=== PATIENT | male | born 1940 | race Caucasian/White ===

== ENCOUNTER → 2017-03-16 | Outpatient (CLI) | payer OTHER, MEDICARE ==
[~2017-03-16] MED LIST: AMBIEN 5 MG TABL5 M1 PO; AMBIEN 5 MG TABL5 MG PO; ASPIR 8181 MG PO; ASPIRIN325 PO; ATORVASTATIN CA40 MG PO; BENADRYL25 MG PO; CALCIUM 600 +1 EAC1 PO; CALCIUM PO; CHOLESTEROL MA1 EACH PO; DILAUDID 2 MG TA2 MG PO; DOXYCYCLINE 10100 MG PO; FISH OIL 1,001000 M2 PO; FISH OIL SOFTG1 EACH PO; GABAPENTIN 100100 MG PO; IMDUR 30 MG TAB30 M1 PO; LIPITOR40 MG PO; LISINOPRIL5 MG PO; LOPRESSOR 50 MG50 M1 PO; LORAZEPAM 1 MG T1 M1 PO; METAMUCIL PAC1 UDPKT PO; MIRALAX255 GM PO; NEURONTIN 300300 M1 PO; PERCOCET PO; PRILOSEC20 MG PO; RANEXA500 MG PO; RED YEAST RICE600 MG PO; SORINE 80 MG TA80 M1 PO; THALOMID50 MG PO; VITAMIN D1000 UNI1 PO; [UNRECOGNIZED DRUG - OTHER]
== END ==
LOC: RAD 12:00
DX: I50.22 Chronic systolic (congestive) heart failure (principal); R06.00 Dyspnea, unspecified

== ENCOUNTER 2018-01-16 19:32 | Inpatient (IN) | payer OTHER, MEDICARE ==
[~2018-01-16] VITALS: Ht 162.6 cm; Wt 67.1 kg
--- NOTE | ~2018-01-16 | HC ---
[facility] [place] [address] CONSULTATION Name: LUCIOAFUASILVIA Nguyễn Room #: 417-I ADM IN .R.#: [id number] Admission: 01/16/18 Attend Phys: Alex White DO Discharge: Date of : 39 Report #: [id number] THIS REPORT FOR: //name// CC: Alex White DATE OF SERVICE: 01/16/2018 HISTORY OF PRESENT ILLNESS: This is a 77-year-old male patient who was evaluated by me for the possibility of stroke. The patient indicated that he usually takes anticoagulant, Eliquis, for what looks like atrial fibrillation. The patient has a pacemaker and defibrillator. He had what looks like subconjunctival hemorrhage on the right side, so he stopped taking Eliquis by himself a few days ago. He thinks he probably did not take it for 3 days or so. This evening this patient had acute onset of what looks like right hemianopsia. Thinking it might be stroke he took a dose of Eliquis and started her again and then came to Emergency Room. In the Emergency Room, he was evaluated. His evaluation was limited because of multiple factors which will be summarized later on. REVIEW OF SYSTEMS: Positive for multiple myeloma. He has a pacemaker and defibrillator. He does not know whether pacemaker is MRI-compatible or not. He had MRI in the past. He thinks he had a stroke in the past. He had kidney stones. He had laminectomy. This was his relevant 14-point review of system. PAST MEDICAL HISTORY: Positive for stroke, further description was not very clear. FAMILY HISTORY: Negative for early age stroke. SOCIAL HISTORY: He has smoked in the past. He drinks alcohol rarely. PHYSICAL EXAMINATION: Indicate he is alert. He is responsive. He can tell me the month. He could not tell me the exact date. He thinks his memory and fund of knowledge is slightly poor. Cranial nerve examination 2-12 indicates dense hemianopsia on the right side and he also has some hemorrhage there. His left eye looks okay. This patient's strength, sensation, reflexes are symmetrical. His posiions sense is absent in both lower extremities but that is his baseline. His reflexes are absent in the lower extremitiesThere is no meningeal sign. There is no carotid bruit. He is moderately built individual. His blood pressure is 180/93. He got some mild hypertensive, but blood pressure did fall down and I asked them to give a little bolus of fluid. He had a history of heart failure in the past, so we need to be cautious with fluids also. There is no respiratory difficulty or rhonchi. He did have a CT scan of the head, which was mostly unremarkable. [address] [address] CONSULTATION Name: SILVIA MELENDEZ Room #: 417-I ADM IN .R.#: [id number] Admission: 01/16/18 Attend Phys: Alex White DO Discharge: Date of : 39 Report #: [id number] IMPRESSION: 1. Cerebrovascular accident. It is in the posterior cerebral artery distribution. It is most likely emboli from the heart because of stopping the Eliquis. 2. The possibility of this being something in the eye is there. I do not think any production posting clerk comes here. I will defer to admitting physician any evaluation in that regard. RECOMMENDATION: I had a long discussion with the patient. Emergency Room physician has already discussed the situation with him. I agree this patient is not a tPA candidate. He just took Eliquis and that will be a contraindication for TPA. His deficit is mild. He was still given the option and he does not want tPA. His evaluation is difficult. Ideally, it is good to evaluate this patient for any other abnormality, but his GFR is only 37 and his deficit is mild, so even if thrombus is fine ____ not a very good thrombectomy candidate. I did ask the Emergency Room physician to give him some bolus to keep his blood pressure around 160-170 systolic and not treat the blood pressure except with the medication he was taking at home. We should also give him fluids. His hemianopsia is dense and I am not sure whether it will reverse or not. I discussed all of this with the patient and I told him that he needs to discuss with the Ophthalmology before he drives, but he says he does not drive anyway. All of it was discussed with the patient in great detail and he understood it very well and more than 50 minutes of time was spent taking care of this patient today and majority of that time was spent counseling the patient. I will defer to you about any ophthalmological examination, which can be done to rule out any ophthalmology etiology, especially because he did have subconjunctival hemorrhage on the right eye, but I do not know whether an production posting clerk come here or not and I will defer that to the admitting doctor. Thank you very much. By: [id number] Migel Vaz MD /john
--- NOTE | ~2018-01-16 | EKG ---
[place] [address] [facility] [address] ELECTROCARDIOGRAM REPORT Name: SILVIA MELENDEZ Room #: 417-I ADM IN M.R.#: [id number] Admission: 01/16/18 Attend Phys: Alex White DO Discharge: Date of : 39 Report #: [id number] THIS REPORT FOR: //name// [facility] ED Test Date: 2018-01-16 Test Time: 19:50:38 Pat Name: SILVIA MELENDEZ Department: Room: [facility] Gender: M Stock Patcher: BABS : 1940 Requested By: Nicole Baig Order Number: [id number] MD: Bob Ray Measurements Intervals Emmett Rate: 63 P: MS: 208 QRS: 17 QRSD: 109 T: 53 QT: 445 QTc: 456 Interpretive Statements Atrial-paced rhythm Low voltage, extremity leads Consider inferior infarct Compared to ECG 06/20/2015 09:08:13 Poor R-wave progression no longer present Electronically Signed On 01-17-2018 17:42:24 CDT by Bob Ray [email or web address] <ELECTRONICALLY SIGNED> By: Bob Ray MD, [facility] 01/17/18 1742 1950 1950 Bob Ray MD, [facility] /EPI
--- NOTE | ~2018-01-16 | 2DMMODE ---
[facility] [address] [place] [address] 2 D/M-MODE ECHOCARDIOGRAM Name: SILVIA MELENDEZ Room #: 417-I ADM IN [facility]#: [id number] Admission: 01/16/18 Attend Phys: Alex White, Discharge: Date of : 39 Date of Service: 01/17/18 1254 Report #: [id number] THIS REPORT FOR: //name// APPROVED REPORT Study performed: 01/17/2018 10:19:46 EXAM: Comprehensive 2D, Doppler, and color-flow Echocardiogram Patient Location: Echo lab Room #: [facility] Status: routine BSA: 1.72 HR: 71 bpm BP: 141/89 mmHg Other Information Study Quality: Adequate Indications CVA/TIA Pacemaker Cardiomyopathy Hypertension/HDD Echo Enhancing Agent Indication: Rule out Shunt Agent(s) / Amount(s) Used: Agitated Saline 7 cc 2D Dimensions RVDd: 35.72 mm LVEF(%): 35.43 (>50%) IVSd: 10.75 (7-11mm) LVOT Diam: 20.18 (18-24mm) LVDd: 48.70 mm PWd: 8.85 (7-11mm) Ascending Ao: 26.62 (22-36mm) LVDs: 40.43 (25-40mm) Aortic Root: 28.86 mm IVC: 18.00 mm Terry's LVEF: 35.43 % Volumes Left Atrial Volume (Systole) Single Plane 4CH: 43.98 mL Single Plane 2CH: 49.32 mL LA ESV Index: 29.00 mL/m2 Aortic Valve AoV Peak Hernando.: 1.13 m/s AO Peak Gr.: 5.09 mmHg LVOT Max P.18 mmHg [facility] [place] [address] 2 D/M-MODE ECHOCARDIOGRAM Name: SILVIA MELENDEZ Room #: 417-I [facility] IN [facility].#: [id number] Admission: 01/16/18 Attend Phys: Alex White, Discharge: Date of : 39 Date of Service: 01/17/18 1254 Report #: [id number] LVOT Max V: 1.02 m/s JESSICA Vmax: 2.90 cm2 Mitral Valve E/A Ratio: 1.3 MV Decel. Time: 161.62 ms MV E Max Hernando.: 1.03 m/s MV A Hernando.: 0.79 m/s MV PHT: 46.87 ms IVRT: 129.18 ms Pulmonary Valve PV Peak Hernando.: 0.79 m/s PV Peak Gr.: 2.49 mmHg Pulmonary Vein P Vein S: 0.55 m/s P Vein A: 0.19 m/s P Vein D: 0.50 m/s P Vein A Dur.: 96.9 msec P Vein S/D Ratio: 1.10 Tricuspid Valve TR Peak Hernando.: 2.55 m/s TR Peak Gr.: 25.95 mmHg PA Pressure: 31.00 mmHg Left Ventricle The left ventricle is normal size. There is near akinesis of entire inferior wall There is hypokinesis in the lateral wall. There is normal left ventricular wall thickness. Left ventricular systolic function is moderately decreased. LVEF is 35%. The left ventricular diastolic function is abnormal. Right Ventricle The right ventricle is normal size. The right ventricular systolic function is normal. Pacemaker lead is present in the right ventricle. Atria Left atrium is borderline dilated. Interatrial septum is intact without evidence of ASD or PFO. Right atrium is dilated. Pacemaker lead is present in the right atrium. Aortic Valve The aortic valve is normal in structure. Aortic valve is calcified. No aortic regurgitation is present. There is no aortic valvular [place] [address] 2 D/M-MODE ECHOCARDIOGRAM Name: SILVIA MELENDEZ Room #: 417-I [facility] IN [facility]#: [id number] Admission: 01/16/18 Attend Phys: Alex White, Discharge: Date of : 38 Date of Service: 01/17/18 1254 Report #: [id number] The mitral valve is normal in structure. Mild mitral regurgitation. No evidence of mitral valve stenosis. Tricuspid Valve The tricuspid valve is normal in structure. There is mild tricuspid regurgitation. Estimated PAP 31 mmHg. There is mild pulmonary hypertension. Pulmonic Valve The pulmonary valve is normal in structure. Trace pulmonic regurgitation. Great Vessels The aortic root is normal in size. IVC is normal in size and collapses >50% with inspiration. Pericardium There is no pericardial effusion. <Conclusion> LVEF is 35%. There is near akinesis of entire inferior wall There is hypokinesis in the lateral wall. Pacemaker lead is present in the right ventricle. Left atrium is borderline dilated. Right atrium is dilated. Pacemaker lead is present in the right atrium. There is no aortic valvular stenosis. <ELECTRONICALLY SIGNED> By: Shahbaz Samuels MD, FACC 01/17/18 1254 1254 1254 Shahbaz Samuels MD, FACC /INF
--- NOTE | ~2018-01-16 | H ---
[facility] [place] [address] HISTORY AND PHYSICAL Name: SILVIA MELENDEZ Room #: 417-I ADM IN M.R.#: [id number] Admission: 01/16/18 Attend Phys: Alex White DO Discharge: Date of : 39 Report #: [id number] THIS REPORT FOR: //name// CC: Alex White DATE OF SERVICE: 01/16/2018 HISTORY OF PRESENT ILLNESS: The patient is a 77-year-old white male who had the onset of sudden vision loss involving the right eye. He was evaluated and seen by Neurology. His course was complicated by cardiac pacemaker and he is not a candidate for an MRI. He had had problems prior to admission with a subconjunctival hemorrhage and thus had stopped his Eliquis for 3 days. Neurology has diagnosed with an embolic stroke to the left posterior cerebral artery, but also indicated that he should see an sewer. Plans are underway for the patient to see an sewer as he had the subconjunctival hemorrhage in the same eye and there is a need to exclude any pathology there. The patient denied any focal weakness. He does have decreased position sense in both lower extremities, which is premorbid from a peripheral neuropathy that is associated per the patient with the chemotherapy for his prior history of multiple myeloma. We are seeing him in rehabilitation medicine consultation. PAST MEDICAL HISTORY: Multiple myeloma in 04/2009 with recurrence in 2018. History of pacemaker with AICD in 2005. [place] with the last one in 1999, mini strokes in 04/2009. CABG x 4 in 1986. 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 MEDICATIONS: Please see the full medication listing. ALLERGIES: No known drug allergies. HABITS: Past history of tobacco, quitting 30 years ago. Weekly a glass of wine. SOCIAL HISTORY: Lives in a house with his , this is actually a town house. Did not utilize gait aids. Did not drive. REVIEW OF SYSTEMS: He has the numbness of both feet and hands. He will wear gloves with the neuropathy. No current complaints of chest pain, shortness of breath or abdominal discomfort. PHYSICAL EXAMINATION: GENERAL: A 77-year-old white male in no obvious distress. VITAL SIGNS: Last recorded temperature is 98.2, pulse 62, respirations 18, and [facility] [address] [place] [address] HISTORY AND PHYSICAL Name: SILVIA MELENDEZ Room #: 417-I [facility] IN [facility]#: [id number] Admission: 01/16/18 Attend Phys: Alex White DO Discharge: Date of : 39 Report #: [id number] blood pressure 141/89. The patient is alert and pleasant. HEENT: Appeared to be benign. NEUROLOGIC: Cranial nerves are grossly intact. Facies are symmetric. He has functional range of motion of the upper extremities. Strength is grade 4-/5. DTRs are trace to 1. In his lower extremities, there is no focal calf swelling, decreased distal sensation, bilateral feet with decreased proprioception. No obvious focal weakness of either lower extremity. As far as examining his eyes, he has conjugate gaze. Definite right visual field deficit. ASSESSMENT: 1. Embolic stroke, left posterior cerebral artery per Neurology. Unable to do an MRI, plan is to repeat the CT scan. 2. Right visual field deficit. 3. Recent history of right subconjunctival hemorrhage. 4. Urology evaluation being arranged. 5. Mild renal insufficiency. 6. Peripheral neuropathy with involvement of both upper and lower extremities, thought to be a chemotherapy effect. 7. History of multiple myeloma. 8. Cardiac pacemaker with automatic implantable cardioverter-defibrillator. 9. Coronary artery bypass grafting x 4 in 1986. 10. History of myocardial infarction x 5. 11. Atrial fibrillation. 12. Chronic kidney disease. PLAN: Therapies are to evaluate. Note consideration for discharge home depending upon how he does functionally with arrangement of Ophthalmology consultation. At this point, we will follow along with you and see how he does functionally. By: 1527 1556 Nima Isaac MD /nt
[2018-01-16 19:47] VITALS: BP 181/93
[2018-01-16 20:02] LABS: ABSOLUTE NEUTROPHILS 3.5 thou/uL (1.4-8.2); EOSINOPHILS 1.3 % (0.0-3.0); HEMATOCRIT 39.8 % (42.0-52.0); HEMOGLOBIN 13.7 gm/dL (14.0-18.0); LYMPHOCYTES 19.6 % (24.0-44.0); MCH 35.6 pg (26.0-34.0); MCHC 34.4 g/dL (28.0-37.0); MCV 103.5 fL (80.0-100.0); MONOCYTES 10.4 % (1.0-8.0); PLATELET COUNT 133 thou/uL (150-400); POLYS 67.7 % (36.0-66.0); RBC 3.84 mil/uL (4.50-6.00); RDW 15.1 % (10.5-14.5); WBC 5.2 thou/uL (4.0-11.0)
[2018-01-16 20:14] LABS: ANION GAP 4 mmol/L (7-16); BUN 22 mg/dL (7-18); CALCIUM 8.8 mg/dL (8.5-10.1); CHLORIDE 106 mmol/L (98-107); CO2 27 mmol/L (21-32); CREATININE 1.8 mg/dL (0.7-1.3); GLUCOSE 153 mg/dL (74-106); POTASSIUM 3.9 mmol/L (3.5-5.1); SODIUM 137 mmol/L (136-145)
[2018-01-16 20:16] LABS: PROTIME 10.1 Seconds (9.3-11.4)
[2018-01-16 20:22] LABS: ALBUMIN 3.5 g/dL (3.4-5.0); SGOT 36 U/L (15-37); SGPT 44 U/L (30-65); TOTAL BILIRUBIN 0.5 mg/dL (<0.1-1.0); TROPONIN-I < 0.04 ng/mL (<0.06)
[2018-01-16] MEDS ORDERED: ELIQUIS5 MG PO (20:30)
[2018-01-16] MEDS ORDERED: NEURONTIN 300300 M1 PO (20:31)
[2018-01-16] MEDS ORDERED: NEURONTIN600 MG PO (20:32)
[2018-01-16] MEDS ORDERED: CENTRUM SILVER1 EAC2 PO (20:33)
[2018-01-16] MEDS ORDERED: ZANTAC 150MG T150 MG PO (20:34)
[2018-01-16] MEDS ORDERED: MIRALAX17 GM PO (20:34)
[2018-01-17 00:09] VITALS: BP 149/78
[2018-01-17 01:00] VITALS: BP 170/85
[2018-01-17 03:07] VITALS: BP 170/85
[2018-01-17 04:20] VITALS: BP 162/84
[2018-01-17 06:35] LABS: ANION GAP 6 mmol/L (7-16); BUN 18 mg/dL (7-18); CALCIUM 8.5 mg/dL (8.5-10.1); CHLORIDE 111 mmol/L (98-107); CHOLESTEROL 143 mg/dL (<200); CO2 26 mmol/L (21-32); CREATININE 1.5 mg/dL (0.7-1.3); GLUCOSE 102 mg/dL (74-106); HDL CHOLESTEROL 64 mg/dL (>40); LDL CHOLESTEROL 61 mg/dL (<100); POTASSIUM 3.8 mmol/L (3.5-5.1); SODIUM 143 mmol/L (136-145); TC:HDL 2.2 Ratio (Not establshd); TRIGLYCERIDE 92 mg/dL (<150); VLDL 18 mg/dL (<40)
[2018-01-17 07:16] VITALS: BP 141/89
[2018-01-17 10:36] LABS: TSH 1.42 uIU/mL (0.358-3.740)
[2018-01-17 19:00] VITALS: BP 114/64
[2018-01-17 20:06] LABS: IgA 82 mg/dL (61-437); IgG 992 mg/dL (700-1600); IgM 65 mg/dL (15-143)
[2018-01-18 04:00] VITALS: BP 150/58
[2018-01-18 06:31] LABS: ABSOLUTE NEUTROPHILS 5.3 thou/uL (1.4-8.2); BASOPHILS 0.3 % (0.0-2.0); EOSINOPHILS 0.8 % (0.0-3.0); HEMATOCRIT 36.7 % (42.0-52.0); HEMOGLOBIN 12.7 gm/dL (14.0-18.0); LYMPHOCYTES 15.2 % (24.0-44.0); MCH 35.6 pg (26.0-34.0); MCHC 34.5 g/dL (28.0-37.0); MCV 103.2 fL (80.0-100.0); MONOCYTES 10.2 % (1.0-8.0); PLATELET COUNT 137 thou/uL (150-400); POLYS 73.5 % (36.0-66.0); RBC 3.56 mil/uL (4.50-6.00); RDW 14.4 % (10.5-14.5); WBC 7.2 thou/uL (4.0-11.0)
[2018-01-18 06:45] LABS: CALCIUM 8.6 mg/dL (8.5-10.1); CREATININE 1.5 mg/dL (0.7-1.3); POTASSIUM 3.5 mmol/L (3.5-5.1)
[2018-01-18 07:06] VITALS: BP 155/90
[2018-01-18 08:30] VITALS: BP 155/90
[2018-01-18 12:21] VITALS: BP 155/90
[2018-01-19 09:13] LABS: ANA INTERPRETATION Negative (Negative)
== END 2018-01-18 14:13 | disposition home or self-care (01) | DRG 64 ==
LOC: ER 19:32 → 4E 20:58 → EROBS 20:58 → 4E 01-17 00:43
PROVIDERS: Family Medicine; Nurse Practitioner Acute Care; Physician Assistant; Psychiatry & Neurology Neuromuscular Medicine
DX: I63.9 Cerebral infarction, unspecified (principal); N17.1 Acute kidney failure with acute cortical necrosis; I48.91 Unspecified atrial fibrillation; G62.9 Polyneuropathy, unspecified; I25.5 Ischemic cardiomyopathy; E78.5 Hyperlipidemia, unspecified; I12.9 Hypertensive chronic kidney disease with stage 1 through stage 4 chronic kidney disease, or unspecified chronic kidney disease; N18.3 Chronic kidney disease, stage 3 (moderate); H53.9 Unspecified visual disturbance; H53.47 Heteronymous bilateral field defects; I25.10 Atherosclerotic heart disease of native coronary artery without angina pectoris; Z95.1 Presence of aortocoronary bypass graft; I25.2 Old myocardial infarction; Z79.01 Long term (current) use of anticoagulants; Z85.79 Personal history of other malignant neoplasms of lymphoid, hematopoietic and related tissues; Z92.21 Personal history of antineoplastic chemotherapy; Z95.810 Presence of automatic (implantable) cardiac defibrillator; Z86.73 Personal history of transient ischemic attack (TIA), and cerebral infarction without residual deficits; Z98.42 Cataract extraction status, left eye; Z98.41 Cataract extraction status, right eye; Z87.442 Personal history of urinary calculi; Z79.899 Other long term (current) drug therapy; Z79.82 Long term (current) use of aspirin; Z87.891 Personal history of nicotine dependence; Z82.49 Family history of ischemic heart disease and other diseases of the circulatory system; Z80.9 Family history of malignant neoplasm, unspecified; Z83.3 Family history of diabetes mellitus
CPT/HCPCS: 10084

== ENCOUNTER → 2018-05-08 | Outpatient (CLI) | payer OTHER, MEDICARE ==
[~2018-05-08] MED LIST changes: +CENTRUM SILVER1 EAC2 PO; +ELIQUIS5 MG PO; +MIRALAX17 GM PO; +NEURONTIN600 MG PO; +ZANTAC 150MG T150 MG PO
--- NOTE | ~2018-05-08 | PFR/MVV ---
[facility] [place] [address] PULMONARY FUNCTION MVV/REPORT Name: SILVIA MELENDEZ Room #: REG [facility]#: [id number] Admission: 05/08/18 Attend Phys: Shahbaz Samuels MD, [facility] Discharge: Date of : 39 Report #: [id number] THIS REPORT FOR: //name// COPIES FOR: AGE: 78 SEX/RACE: M/C >> SPIROMETRY: (BTPS) Height: 64 in cm Weight: 143 lbs kg Exam Date: 05/08/18 PRE-RX POST-RX PRED BEST %PRED BEST %PRED %CHG FVC LITERS . 2.62 . 1.95 . 74 . 2.14 . 82 . 10 FEV1 LITERS . 2.02 . 0.93 . 46 . 1.02 . 51 . 10 FEV1/FVC % . 78 . 48 . 61 . 48 . 61 . 0 ZHG69-85% L/Sec . 2.05 . 0.27 . 13 . 0.28 . 14 . 4 PEF L/SEC . 6.52 . 3.10 . 48 . 3.04 . 47 . -2 FEF50/FIF50 UNITLESS . <1.0 . 0.13 . . 0.13 . . 3 MVV L/Min . 96 . 29 . 30 f 1/Min . . 110 . >> LUNG VOLUMES: (BTPS) PRE-RX POST-RX PRED AVG %PRED AVG %PRED %CHG VC Liters . 2.62 . 1.97 . 75 . . . TLC Liters . 4.94 . 4.48 . 91 . . . RV Liters . 2.28 . 2.52 . 110 . . . RV/TLC % . 44 . 56 . 128 . . . FRC PL Liters . 3.03 . 2.95 . 97 . . . FRC N2 Liters . 3.03 . . . . . ERV Liters . . 0.43 . . . . IC Liters . . 1.38 . . . . >> DIFFUSION: DLCO ml/Min/mmHg . 14.3 . 4.4 . 31 . . . DL Damaris ml/Min/mmHg . 14.3 . 4.4 . 31 . . . DLCO/VA ml/Min/mmHg . 3.36 . 1.70 . 51 . . . VA Liters . . 2.59 . . . . [facility] [address] [place] [address] PULMONARY FUNCTION MVV/REPORT Name: SILVIA MELENDEZ Room #: REG [facility]#: [id number] Admission: 05/08/18 Attend Phys: Shahbaz Samuels MD, [facility] Discharge: Date of : 39 Report #: [id number] COMMENTS: COMMENTS: >> RESISTANCE: PRE-RX PRED AVG %PRED Raw Total cmH20/L/Sec . . 7.06 . Raw Insp cmH20/L/Sec . . 6.36 . Raw Exp cmH20/L/Sec . . 9.76 . Raw cmH20/L/Sec . 1.55 . 4.83 . 311 Gaw L/Sec/cmH20 . 0.727 . 0.207 . 28 sRaw cmH20 Sec . 4.70 . 16.95 . 360 sGaw l/cmH20 Sec . 0.213 . 0.059 . 28 Vtq Liters . . 3.51 . # = OUTSIDE 95% [facility] INTERVAL CALIBRATION: PRED: 3.00 ACTUAL: EXP 3.01 INSP 3.02 [facility]-OL10-06 [facility]-05 N-1804-4 >> INTERPRETATION/IMPRESSION: CC: Alex Samuels MD Spirometric examination revealed severe airflow obstruction. There was no significant bronchodilator response. Lung volumes are normal. Diffusion capacity is moderately reduced, corrected for alveolar volume. Flow volume loop is consistent with airflow obstruction. IMPRESSION: Severe obstructive ventilatory defect. <ELECTRONICALLY SIGNED> By: Sacha García MD 05/10/18 1645 Sacha García MD /nt
== END ==
LOC: RAD 10:32
DX: I48.0 Paroxysmal atrial fibrillation (principal); I47.2 Ventricular tachycardia

== ENCOUNTER → 2018-07-20 | Outpatient (CLI) | payer OTHER, MEDICARE ==
[~2018-07-20] VITALS: Ht 162.6 cm; Wt 65.8 kg
[~2018-07-20] MED LIST changes: +ACYCLOVIR 400400 MG PO; +CALCIUM 500 +1 EAC5 PO; +CARVEDILOL3.125 MG PO; +CHOLEST OFF450 MG PO; +COREG6.25 MG PO; +DIGOXIN250 MCG PO; +FIBER500 MG PO; +FUROSEMIDE 20 M20 MG PO; +IMDUR 60 MG TAB60 M1 PO; +KLOR-CON 1010 MEQ PO; +NEPHROCAPS SOFT1 CAP PO; +REVLIMID10 MG PO; +TYLENOL EXTRA500 MG PO; +UNICOMPLEX M TA1 TA1 PO; +VITAMIN B-12500 MCG PO; +VITAMIN D-32000 UNIT PO
--- NOTE | ~2018-07-20 | P ---
[facility] [place] [address] PROCEDURE REPORT Name: SILVIA MELENDEZ Room #: REG [facility]#: [id number] Admission: 07/20/18 Attend Phys: Brian Foreman MD Discharge: Date of : 39 Report #: [id number] THIS REPORT FOR: //name// CC: Alex Samuels DATE OF SERVICE: 07/21/2018 PREOPERATIVE DIAGNOSIS: Implantable cardioverter defibrillator at the elective replacement interval. POSTOPERATIVE DIAGNOSIS: Implantable cardioverter defibrillator at the elective replacement interval. HISTORY: The patient is a 78-year-old, status post ICD implantation. His device is currently at the elective replacement interval. He is here for ICD generator exchange. ANESTHESIA: The patient underwent MAC anesthesia with no anesthesia related complications. DESCRIPTION OF PROCEDURE: The patient underwent informed consent. We discussed the details of the procedure including the risks, which include, but not limited to bleeding, infection as well as need for possible lead revisions. He understood these risks and was willing to proceed. The patient was brought to the EP laboratory in a fasting and unsedated state and prepped and draped in a sterile fashion. He received IV antibiotics prior to initiation of the procedure. I then injected lidocaine at the prior incision site. Incision was made, and the chronic pocket was entered. The device was removed from the pocket and the device was disconnected from the preexisting leads. The leads were tested and found to be functioning satisfactorily. Next, the new generator was attached and the pocket was irrigated with vancomycin. A Medtronic Tyrx antibiotic pouch was placed in the pocket. The pocket was then closed in 2 layers using 2-0 for the deep layer and 3-0 for the middle layer and surgical glue was placed to the outer skin layer. The patient awoke neurologically and hemodynamically intact. No complications and no significant bleeding. The explanted device was a Medtronic model number F367PXL, serial number [id number], which was originally implanted back in December 2011. The newly implanted device is [employer] model number [id number], serial number [id number]. The atrial lead was a [employer] model number 1688TC, serial number [id number] with a P-wave of 3.1 millivolts, pacing impedance of 43 ohms and a pacing threshold of 0.5 volts at 0.5 milliseconds. The RV lead was [employer] model number 1581, serial number [id number] with R-wave of 12.5 millivolts, [address] [address] PROCEDURE REPORT Name: SILVIA MELENDEZ Room #: REG [facility] [place]#: [id number] Admission: 07/20/18 Attend Phys: Brian Foreman MD Discharge: Date of : 39 Report #: [id number] pacing impedance of 597 ohms, normal shock impedance and a pacing threshold of 0.5 volts at 0.5 milliseconds. The device was programmed to the DDDR 60-130 mode. There was a VT1 zone that was for monitoring. There was a VT2 zone set at 144 beats per minute to 222 with ATP x 6 followed by max output shocks. The VF zone was set at greater than 222 beats per minute with ATP while charging followed by max output shocks. CONCLUSIONS: 1. Successful implantable cardioverter defibrillator generator exchange. 2. Satisfactory atrial and ventricular pacing and sensing thresholds. RECOMMENDATIONS: 1. The patient will take minocycline 100 mg b.i.d. for 5 days given his higher risk of infection given immunocompromised state. 2. The patient will resume his Eliquis in the morning. By: [id number] Brian Foreman MD /nt
[2018-07-20 07:12] VITALS: BP 145/73
[2018-07-20 07:45] LABS: HEMATOCRIT 40.3 % (42.0-52.0); HEMOGLOBIN 13.8 gm/dL (14.0-18.0); MCH 36.1 pg (26.0-34.0); MCHC 34.2 g/dL (28.0-37.0); MCV 105.3 fL (80.0-100.0); PLATELET COUNT 130 thou/uL (150-400); RBC 3.82 mil/uL (4.50-6.00); RDW 17.2 % (10.5-14.5); WBC 4.3 thou/uL (4.0-11.0)
[2018-07-20 08:15] LABS: CALCIUM 8.8 mg/dL (8.5-10.1); CREATININE 1.3 mg/dL (0.7-1.3); POTASSIUM 3.9 mmol/L (3.5-5.1)
[2018-07-20 08:21] LABS: ALBUMIN 3.2 g/dL (3.4-5.0); TOTAL BILIRUBIN 0.6 mg/dL (<0.1-1.0); TOTAL PROTEIN 6.2 g/dL (6.4-8.2)
[2018-07-20 08:25] LABS: APTT 23.9 Seconds (24.5-32.8); PROTIME 10.3 Seconds (9.3-11.4)
[2018-07-20 08:30] LABS: ABSOLUTE NEUTROPHILS 3.4 thou/uL (1.4-8.2)
[2018-07-20 08:31] LABS: ANISOCYTOSIS 1+; MACROCYTES 1+; OVALOCYTES 1+
== END | disposition home or self-care (01) ==
LOC: CATH 06:44
PROVIDERS: Internal Medicine Cardiovascular Disease
DX: Z45.02 Encounter for adjustment and management of automatic implantable cardiac defibrillator (principal); I13.0 Hypertensive heart and chronic kidney disease with heart failure and stage 1 through stage 4 chronic kidney disease, or unspecified chronic kidney disease; N18.3 Chronic kidney disease, stage 3 (moderate); I50.9 Heart failure, unspecified; E78.5 Hyperlipidemia, unspecified; I25.5 Ischemic cardiomyopathy; I48.91 Unspecified atrial fibrillation; I25.2 Old myocardial infarction; C90.00 Multiple myeloma not having achieved remission; K21.9 Gastro-esophageal reflux disease without esophagitis; Z95.1 Presence of aortocoronary bypass graft; Z79.899 Other long term (current) drug therapy; Z86.73 Personal history of transient ischemic attack (TIA), and cerebral infarction without residual deficits; Z82.49 Family history of ischemic heart disease and other diseases of the circulatory system; Z98.41 Cataract extraction status, right eye; Z98.42 Cataract extraction status, left eye; Z87.442 Personal history of urinary calculi; Z87.891 Personal history of nicotine dependence; Z79.01 Long term (current) use of anticoagulants
CPT/HCPCS: 62110; 62900; 70005

== ENCOUNTER → 2018-10-18 | Outpatient (CLI) | payer OTHER, MEDICARE | LOC: RAD 10:49 | DX: J98.4 Other disorders of lung (principal); C90.02 Multiple myeloma in relapse; M84.48XD Pathological fracture, other site, subsequent encounter for fracture with routine healing ==